=== PATIENT | male | born 1960 | race Caucasian/White ===

== ENCOUNTER → 2019-06-27 13:35 | Outpatient (CLI) | payer BC, SELFPAY ==
--- NOTE | 2019-06-27 13:38 | US_ITS ---
PROCEDURE: US EXTREMITY LT LIMITED CLINICAL INDICATION: POPLATEAL FOSSE MASS which is palpable COMPARISON: No exams were available for comparison FINDINGS: There is a primarily sonolucent mass popliteal fossa measuring 6.9 x 4.1 by 4.4 cm. There may be some minimal internal debris noted. The borders are fairly well-defined and the appearance and location certainly is consistent with a popliteal cyst. IMPRESSION: Carrillo's cyst left popliteal fossa Dictated by: Dr. Troy Lucero MD 06/29/2019 09:[address] Troy Lucero MD in [place] 06/29/2019 09:59
== END ==
PROVIDERS: PCP Family Medicine; Visit Provider Family Medicine
DX: M71.22 Synovial cyst of popliteal space [Baker], left knee (principal)
CPT/HCPCS: 76882

== ENCOUNTER 2024-01-05 14:25 | Outpatient (CLI) | payer BC, SELFPAY ==
--- NOTE | 2024-01-05 14:31 | CT_ITS ---
FINAL REPORT TECHNIQUE: Axial images through the abdomen and pelvis were performed without contrast. This study was performed with techniques to keep radiation doses as low as reasonably achievable, (ALARA). Individualized dose reduction techniques using automated exposure control or adjustment of mA and/or kV according to the patient's size were employed. CLINICAL HISTORY: left sided flank pain; intermittent x3 weeks FINDINGS: ABDOMEN: The lung bases are clear. The heart size is normal. Limited images of the liver are unremarkable. The spleen is normal. No adrenal mass is identified. There is a 4.5 cm infrarenal abdominal aortic aneurysm. There is no significant free fluid or adenopathy. There are multiple bilateral renal stones measuring up to 5 mm. There is mild left hydronephrosis secondary to a 7 mm left UPJ stone. PELVIS: The appendix is normal. There are multiple colonic diverticula. Inguinal hernias are identified containing fat. The urinary bladder is unremarkable. There is no significant free fluid or adenopathy. IMPRESSION: Bilateral nephrolithiasis. Mild left hydronephrosis secondary to a left UPJ stone. Infrarenal abdominal aortic aneurysm. Reviewed, Interpreted and Dictated by Chris Sow III, MD Transcribed by Maryebth Martinez Authenticated and [facility]
== END 2024-01-05 23:59 | disposition home or self-care (01) ==
PROVIDERS: PCP Family Medicine; Visit Provider Family Medicine
DX: R10.9 Unspecified abdominal pain (principal); R31.9 Hematuria, unspecified
CPT/HCPCS: 74176

== ENCOUNTER 2024-01-11 19:37 | Emergency (ER) | payer BC, SELFPAY ==
[2024-01-11] VITALS (7 sets, daily range): BP systolic 128–155; BP diastolic 77–95; PULSE 73–86; RESP 16–22; TEMP 36.8; O2SAT 94–99; BMI 31.3
--- NOTE | 2024-01-11 19:46 | ED_ITS ---
<Statement entered by Sage Wiggins MD - 01/11/24 23:02> I was consulted by the PITO, and we discussed the complexity of the problems being addressed. I approved the treatment and management plan for this patient's care in the emergency department, thus performing a substantive portion of the medical decision making. Sage Wiggins MD Discharge Plan Disposition Patient Disposition: Xfer Short-Term Hosp Referrals Follow up/Referrals: Magdiel Sanchez [Primary Care Provider] - See instructions Clinical Impressions Clinical Impression: Ureterolithiasis, Bilateral hydronephrosis, Acute kidney injury (nontraumatic), Rectal mass Discharge ED Provider: Natalia Donahue General Adult HPI <SHAYNE Gill - Last Filed: 01/11/24 23:00> General Chief complaint: PAIN Stated complaint: ? kidney stone Time Seen by Provider: 01/11/24 19:41 History of Present Illness HPI narrative: Patient presents for acute onset of right flank pain. Patient has a history of kidney stones and has passed 3 in the last few months most recently being around December 05. His PCP ordered a CT scan of the abdomen which showed an obstructing stone at the left UPJ. Also incidentally saw approximately 4.5 cm infrarenal abdominal aortic aneurysm. Patient had been set up to see Dr. Tomy James for prostate issues but had not been referred to see anyone for kidney stones. Patient reports acute onset right flank pain that began around 5:00 this afternoon with associated renal colic and pain was unrelenting enough that he was having vomiting. He denies chest pain shortness of breath fever chills hemoptysis hematochezia melena diarrhea. Related Data Allergies Allergy/AdvReac Type Severity Reaction Status Date / Time No Known Allergies Allergy Verified 01/11/24 19:57 PFSH <SHAYNE Gill - Last Filed: 01/11/24 23:00> PFS Disclaimer: The information contained in this section may have been updated after the patient was seen, as this information can be updated by other users. Social History (Updated 01/11/24 @ 23:00 by SHAYNE Gill) Smoking Status: Current every day smoker alcohol intake: never current occupational status: employed Travel in the last 8 weeks: None <SHAYNE Gill - Last Filed: 01/11/24 23:00> ROS Obtained: Yes Systems reviewed as appropriate & no additional complaints except as documented Physical Exam <SHAYNE Gill - Last Filed: 01/11/24 23:00> General General appearance: alert and in no apparent distress Neck Neck exam: Present lymphadenopathy Respiratory Respiratory exam: Present normal lung sounds bilaterally Cardiovascular Cardiovascular exam: Present regular rate, normal rhythm and normal heart sounds Back Exam Back exam: Present normal inspection, full ROM and CVA tenderness (R); Absent CVA tenderness (L) Neurological Exam Neurological exam: Present alert and oriented X3 Medical Decision Making <SHAYNE Gill - Last Filed: 01/11/24 23:00> Medical Records Medical records reviewed: Yes I reviewed the patient's medical records. Roger Inquiry Pt receiving controlled substance: No Vital Signs: 01/11/24 19:39 Temperature 98.2 F Temperature Source Oral Pulse Rate [Right] 73 Respiratory Rate 22 Blood Pressure [Right Arm] 151/77 H Blood Pressure Mean [Right Arm] 101 Blood Pressure Source [Right Arm] Automatic Cuff Blood Pressure Position [Right Arm] Sitting 02 Sat by Pulse Oximetry 99 Oxygen Delivery Method Room Air Lab Data Lab results reviewed: Yes I reviewed the patient's lab results. Lab Results 01/11/24 19:56: WBC 13.3 H, RBC 5.47, Hgb 17.2, Hct 50.2, MCV 91.9, MCH 31.4 H, MCHC 34.2, RDW 13.4, Plt Count 183, MPV 9.8, Neut % (Auto) 58.2, Lymph % (Auto) 33.8, Harvey % (Auto) 5.2, Eos % (Auto) 1.8, Baso % (Auto) 1.0, Neut # (Auto) 7.7, Lymph # (Auto) 4.5, Harvey # (Auto) 0.7, Eos # (Auto) 0.2, Baso # (Auto) 0.1, Sodium 138, Potassium 4.2, Chloride 103, Carbon Dioxide 24, Anion Gap 16.3 H, B UN 24 H, Creatinine 2.60 H, Estimated Creat Clear 38, Estimated GFR 25 L, Est GFR ( Amer) 31 L, Glucose 124 H, Calcium 9.4, Total Bilirubin 0.5, AST 32, ALT 27, Alkaline Phosphatase 69, Total Protein 8.3 H, Albumin 4.3, Globulin 4.0 H, Albumin/Globulin Ratio 1.1 01/11/24 22:15: Urine Color Yellow, Urine Appearance Clear, Urine pH 6.0, Ur Specific Funk 1.010, Urine Protein Negative, Urine Glucose (UA) Negative, Urine Ketones Negative, Urine Blood 2+, Urine Nitrate Negative, Urine Bilirubin Negative, Urine Urobilinogen 0.2, Ur Leukocyte Esterase Negative, Urine RBC 20- 50, Urine WBC 3-5, Ur Squamous Epith Cells 3-5, Urine Bacteria 1+, Urine Mucus Trace 01/11/24 19:56 01/11/24 19:56 Orders (Tests/Meds): ED MEDICATIONS Generic Name Dose Route Start Last Admin Trade Name Freq PRN Reason Stop Dose Admin Lactated Ringer's 1,000 mls @ 999 mls/hr 01/12/24 00:22 01/12/24 00:31 Lactated Ringer's 1000 Ml Bag IV 01/12/24 01:22 999 mls/hr .Q1H1M ONE Administration Sodium Chloride 8 ml 01/12/24 00:38 Sodium Chloride 0.9% 10ml Vial IV 02/11/24 00:37 NEEDED PRN dilute pepcid Discontinued Medications Generic Name Dose Route Start Last Admin Trade Name Freq PRN Reason Stop Dose Admin Acetaminophen 1,000 mg 01/11/24 19:48 01/11/24 20:29 Acetaminophen 1,000mg/100ml Vial IV 01/11/24 19:49 1,000 mg ONCE ONE Administration Belladonna Alkaloids 60 ml 01/11/24 22:18 01/11/24 22:19 Belladonna Alkaloids 60 Ml Ml PO 01/11/24 22:19 60 ml ONCE ONE Administration Famotidine 20 mg 01/12/24 00:38 01/12/24 00:47 Famotidine 20mg/2ml Vial IV 01/12/24 00:39 20 mg ONCE ONE Administration Sodium Chloride 500 mls @ 999 mls/hr 01/11/24 19:48 01/11/24 20:29 Sod Chlor 0.9% 1000ml Bag IV 01/11/24 20:18 999 mls/hr .Q31M ONE Administration Ketorolac Tromethamine 15 mg 01/11/24 19:48 07/15/24 20:28 Ketorolac 30mg/Ml Vial IV 01/11/24 19:49 15 mg ONCE ONE Administration Morphine Sulfate 4 mg 01/11/24 20:27 01/11/24 20:29 Morphine 4mg/Ml Syringe IV 01/11/24 20:28 4 mg ONCE ONE Administration Ondansetron HCl 4 mg 01/11/24 20:12 01/11/24 20:28 Ondansetron 4mg/2ml Vial IV 01/11/24 20:13 4 mg ONCE ONE Administration Pantoprazole Sodium 40 mg 01/12/24 00:38 01/12/24 00:48 Pantoprazole 40mg Tablet PO 01/12/24 00:39 40 mg ONCE ONE Administration ORDERS Category Date Time Status CT abdomen pelvis wo con Stat Cat Scan 01/11/24 21:08 Completed CBC w/Auto Diff [Complete Blood Count Auto Diff] Stat Lab 01/11/24 19:56 Completed CMP [Comprehensive Metabolic Panel] Stat Lab 01/11/24 19:56 Completed UA [Urinalysis and Microscopic] Stat Lab 01/11/24 22:15 Completed Medical Decision Narrative: In summary patient is a 63-year-old male who presents to the emergency department for evaluation of acute right flank pain. Patient is hemodynamically stable upon arrival, afebrile. Physical exam is remarkable for tenderness to percussion of the right CVA negative on the left. Patient has slight diffuse right-sided tenderness to palpation without rebound or guarding or rigidity.. Differential diagnosis includes urinary tract infection kidney stone pyelonephritis other intra-abdominal pathology etc. Initial workup will be conducted with hematologic labs urinalysis CT scan abdomen pelvis. Initial interventions include crystalloid bolus Toradol Tylenol Zofran. Initial workup reviewed by me shows a slightly elevated white count with a left shift remainder of his hematologic labs show an elevated creatinine but we do not have a more current baseline suggestive of acute kidney injury with a decreased GFR. Urinalysis shows blood but no evidence of bacteria or infection. My informal interpretation of CT scan abdomen pelvis shows bilateral UPJ stones confirmed by radiology with hydronephrosis and multiple intrarenal stones bilaterally. Incidentally radiology read an area of concern in the rectum and recommended a GI evaluation and colonoscopy nonurgently. Patient informed of those findings. Upon repeat evaluation patient did have some improvement in his pain after initial intervention and is agreeable to transfer. Given this I have contacted the [facility] initially per patient request and we are awaiting that at the time of handoff at [address] Donahue <Natalia Donahue, DO - Last Filed: 01/12/24 00:49> Vital Signs: 01/11/24 19:39 Temperature 98.2 F Temperature Source Oral Pulse Rate [Right] 73 Respiratory Rate 22 Blood Pressure [Right Arm] 151/77 H Blood Pressure Mean [Right Arm] 101 Blood Pressure Source [Right Arm] Automatic Cuff Blood Pressure Position [Right Arm] Sitting 02 Sat by Pulse Oximetry 99 Oxygen Delivery Method Room Air Lab Data Lab Results 01/11/24 19:56: WBC 13.3 H, RBC 5.47, Hgb 17.2, Hct 50.2, MCV 91.9, MCH 31.4 H, MCHC 34.2, RDW 13.4, Plt Count 183, MPV 9.8, Neut % (Auto) 58.2, Lymph % (Auto) 33.8, Harvey % (Auto) 5.2, Eos % (Auto) 1.8, Baso % (Auto) 1.0, Neut # (Auto) 7.7, Lymph # (Auto) 4.5, Harvey # (Auto) 0.7, Eos # (Auto) 0.2, Baso # (Auto) 0.1, Sodium 138, Potassium 4.2, Chloride 103, Carbon Dioxide 24, Anion Gap 16.3 H, B UN 24 H, Creatinine 2.60 H, Estimated Creat Clear 38, Estimated GFR 25 L, Est GFR ( Amer) 31 L, Glucose 124 H, Calcium 9.4, Total Bilirubin 0.5, AST 32, ALT 27, Alkaline Phosphatase 69, Total Protein 8.3 H, Albumin 4.3, Globulin 4.0 H, Albumin/Globulin Ratio 1.1 01/11/24 22:15: Urine Color Yellow, Urine Appearance Clear, Urine pH 6.0, Ur Specific Funk 1.010, Urine Protein Negative, Urine Glucose (UA) Negative, Urine Ketones Negative, Urine Blood 2+, Urine Nitrate Negative, Urine Bilirubin Negative, Urine Urobilinogen 0.2, Ur Leukocyte Esterase Negative, Urine RBC 20- 50, Urine WBC 3-5, Ur Squamous Epith Cells 3-5, Urine Bacteria 1+, Urine Mucus Trace Orders (Tests/Meds): ED MEDICATIONS Generic Name Dose Route Start Last Admin Trade Name Van PRN Reason Stop Dose Admin Lactated Ringer's 1,000 mls @ 999 mls/hr 01/12/24 00:22 01/12/24 00:31 Lactated Ringer's 1000 Ml Bag IV 01/12/24 01:22 999 mls/hr .Q1H1M ONE Administration Sodium Chloride 8 ml 01/12/24 00:38 Sodium Chloride 0.9% 10ml Vial IV 02/11/24 00:37 NEEDED PRN dilute pepcid Discontinued Medications Generic Name Dose Route Start Last Admin Trade Name Freq PRN Reason Stop Dose Admin Acetaminophen 1,000 mg 01/11/24 19:48 01/11/24 20:29 Acetaminophen 1,000mg/100ml Vial IV 01/11/24 19:49 1,000 mg ONCE ONE Administration Belladonna Alkaloids 60 ml 01/11/24 22:18 01/11/24 22:19 Belladonna Alkaloids 60 Ml Ml PO 01/11/24 22:19 60 ml ONCE ONE Administration Famotidine 20 mg 01/12/24 00:38 01/12/24 00:47 Famotidine 20mg/2ml Vial IV 01/12/24 00:39 20 mg ONCE ONE Administration Sodium Chloride 500 mls @ 999 mls/hr 01/11/24 19:48 01/11/24 20:29 Sod Chlor 0.9% 1000ml Bag IV 01/11/24 20:18 999 mls/hr .Q31M ONE Administration Ketorolac Tromethamine 15 mg 01/11/24 19:48 01/11/24 20:28 Ketorolac 30mg/Ml Vial IV 01/11/24 19:49 15 mg ONCE ONE Administration Morphine Sulfate 4 mg 01/11/24 20:27 01/11/24 20:29 Morphine 4mg/Ml Syringe IV 01/11/24 20:28 4 mg ONCE ONE Administration Ondansetron HCl 4 mg 01/11/24 20:12 01/11/24 20:28 Ondansetron 4mg/2ml Vial IV 01/11/24 20:13 4 mg ONCE ONE Administration Pantoprazole Sodium 40 mg 01/12/24 00:38 01/12/24 00:48 Pantoprazole 40mg Tablet PO 01/12/24 00:39 40 mg ONCE ONE Administration ORDERS Category Date Time Status CT abdomen pelvis wo con Stat Cat Scan 01/11/24 21:08 Completed CBC w/Auto Diff [Complete Blood Count Auto Diff] Stat Lab 01/11/24 19:56 Completed CMP [Comprehensive Metabolic Panel] Stat Lab 01/11/24 19:56 Completed UA [Urinalysis and Microscopic] Stat Lab 01/11/24 22:15 Completed Medical Decision Narrative: In summary patient is a 63-year-old male who presents to the emergency department for evaluation of acute right flank pain. Patient is hemodynamically stable upon arrival, afebrile. Physical exam is remarkable for tenderness to percussion of the right CVA negative on the left. Patient has slight diffuse right-sided tenderness to palpation without rebound or guarding or rigidity.. Differential diagnosis includes urinary tract infection kidney stone pyelonephritis other intra-abdominal pathology etc. Initial workup will be conducted with hematologic labs urinalysis CT scan abdomen pelvis. Initial interventions include crystalloid bolus Toradol Tylenol Zofran. Initial workup reviewed by me shows a slightly elevated white count with a left shift remainder of his hematologic labs show an elevated creatinine but we do not have a more current baseline suggestive of acute kidney injury with a decreased GFR. Urinalysis shows blood but no evidence of bacteria or infection. My informal interpretation of CT scan abdomen pelvis shows bilateral UPJ stones confirmed by radiology with hydronephrosis and multiple intrarenal stones bilaterally. Incidentally radiology read an area of concern in the rectum and recommended a GI evaluation and colonoscopy nonurgently. Patient informed of those findings. Upon repeat evaluation patient did have some improvement in his pain after initial intervention and is agreeable to transfer. Given this I have contacted the [facility] initially per patient request and we are awaiting that at the time of handoff at [address] Godfrey Donahue, DO: I assumed care of the patient at 2300. Patient resting comfortably and hemodynamically stable. Fluid resuscitation ongoing given BRISEYDA. I had an interactive discussion with urology at [facility] Dr. De who advised that he would be happy to help with stenting the patient. I then had an interactive discussion with the hospitalist, Dr. Rodriguez, who accepted the patient for transfer. Bed assignment was given, report was called, and the patient was transported to [facility] for higher level of care in stable condition given that we do not have urology here. Critical Care <SHAYNE Gill - Last Filed: 01/11/24 23:00> Critical Care Time Critical Care Time: No
[2024-01-11 20:15] LABS: Basophils # 0.1 K/mm3 (0-0.2); Eosinophils # 0.2 K/mm3 (0.0-0.4); Eosinophils % 1.8 % (0.1-12.0); Hematocrit 50.2 % (42.0-52.0); Hemoglobin 17.2 g/dL (14.1-18.0); Lymphocytes # 4.5 K/mm3 (0.7-4.5); Lymphocytes % 33.8 % (10-50); Mean Corpuscular HGB Conc 34.2 g/dL (31.8-35.4); Mean Corpuscular Hemoglobin 31.4 pg (27.0-31.2); Mean Corpuscular Volume 91.9 fl (80-94); Mean Platelet Volume 9.8 fl (7.4-10.4); Monocytes # 0.7 K/mm3 (0.1-1.0); Monocytes % 5.2 % (1.7-9.3); Neutrophils # 7.7 K/mm3 (1.8-7.8); Neutrophils % 58.2 % (37.0-80.0); Platelet Count 183 K/mm3 (142-424); Red Blood Count 5.47 M/mm3 (4.60-6.20); Red Cell Distribution Width 13.4 % (11.5-17.5); White Blood Count 13.3 K/mm3 (4.8-10.8)
[2024-01-11 20:26] LABS: Chloride 103 mmol/L (98-107); Potassium 4.2 mmoL/L (3.5-5.1); Sodium 138 mmol/L (136-145)
[2024-01-11 20:28] LABS: Blood Urea Nitrogen 24 mg/dl (9-20); Creatinine Clearance Estimated 38 mL/min (50-200); Estimated Glomerular Filt Rate 25 ml/min (>60); GFR (African American) 31 ML/MIN (>60)
[2024-01-11] MEDS: KETOROLAC 30MG/ML VIAL 15 MG IV (20:28)
[2024-01-11] MEDS: ONDANSETRON 4MG/2ML VIAL 4 MG IV (20:28)
[2024-01-11 20:29] LABS: Alanine Aminotransferase 27 U/L (12-78); Albumin Level 4.3 g/dl (3.5-5.0); Albumin/Globulin Ratio 1.1 (1.1-1.8); Alkaline Phosphatase 69 U/L (38-126); Aspartate Amino Transferase 32 U/L (17-59); Bilirubin,Total 0.5 mg/dl (0.2-1.3); Calcium 9.4 mg/dl (8.4-10.2); Carbon Dioxide 24 mmol/L (22.0-30.0); Glucose 124 mg/dl (74-100); Total Protein,Serum 8.3 g/dl (6.3-8.2)
[2024-01-11] MEDS: MORPHINE 4MG/ML SYRINGE 4 MG IV (20:29)
[2024-01-11] MEDS: 0.9 % SODIUM CHLORIDE 1000ML 500 ML 999 ML IV (20:29)
[2024-01-11] MEDS: ACETAMINOPHEN 1,000MG/100ML VIAL 1000 MG IV (20:29)
[2024-01-11 20:35] LABS: Anion Gap 16.3 mEq/L (5-15)
--- NOTE | 2024-01-11 21:08 | CT_ITS ---
PROCEDURE INFORMATION: Exam: CT Abdomen And Pelvis Without Contrast Exam date and time: 01/11/2024 9:16 PM Age: 63 years old Clinical indication: Abdominal pain; Flank; Right; Additional info: Right flank pain TECHNIQUE: Imaging protocol: Computed tomography of the abdomen and pelvis without contrast. Radiation optimization: All CT scans at this facility use at least one of these dose optimization techniques: automated exposure control; mA and/or kV adjustment per patient size (includes targeted exams where dose is matched to clinical indication); or iterative reconstruction. COMPARISON: CT ABDOMEN PELVIS WO CON 01/05/2024 2:31 PM FINDINGS: Lungs: The visualized lung bases demonstrate no focal infiltrates. Liver: The liver appears within normal limits. Gallbladder and biliary ducts: The gallbladder is normal. There is no evidence of biliary ductal dilation. Pancreas: The pancreas is normal. Spleen: The spleen is normal. Adrenal glands: The adrenal glands appear within normal limits. Kidneys and ureters: Mild left renal hydronephrosis, unchanged. This is due to a stone within the proximal left ureter at the level of the UPJ. This stone measures 8 x 6 mm. Unchanged in location. New mild right renal obstructive hydronephrosis due to a stone at the level of the right UPJ. Stone measures 6 x 5 mm. There are approximately 4 to 5 intra calyceal stones within the left kidney each measuring 1-2 mm. There are approximately 10-12 intra calyceal stones within the right kidney ranging from 1-3 mm. Stomach and bowel: The stomach appears within normal limits. No wall thickening or inflammatory change. Subtle focal asymmetric wall thickening is suggested within the mid to lower rectum. See series 3 image 90 a through image 104. There is some questionable desmoplastic reaction within the adjacent perirectal fat see series 3, image 102. Recommend follow-up GI consultation and colonoscopy . Sigmoid diverticulosis noted. Appendix: No evidence of appendicitis. Intraperitoneal space: No free air. No evidence for focal fluid collection or ascites. No evidence for omental thickening. Vasculature: Focal fusiform aneurysmal dilation of the infrarenal abdominal aorta maximal transverse dimension 4.1 cm. Lymph nodes: Unremarkable. No pathologically enlarged lymph nodes are identified. Urinary bladder: Unremarkable as visualized. Reproductive: The prostate gland appears normal. Bones/joints: Unremarkable. No acute fracture. Soft tissues: Chest wall subcutaneous tissues and musculature appear unremarkable. IMPRESSION: 1. Subtle focal asymmetric wall thickening is suggested within the mid to lower rectum. See series 3 image 90 a through image 104. There is some questionable desmoplastic reaction within the adjacent perirectal fat see series 3, image 102. Recommend follow-up GI consultation and colonoscopy to exclude colonic neoplasm . 2. New mild right renal obstructive hydronephrosis due to a stone at the level of the right UPJ. Stone measures 6 x 5 mm. 3. Mild left renal hydronephrosis, unchanged. This is due to a stone within the proximal left ureter at the level of the UPJ. This stone measures 8 x 6 mm. Unchanged in location. 4. Focal fusiform aneurysmal dilation of the infrarenal abdominal aorta maximal transverse dimension 4.1 cm. 5. Sigmoid diverticulosis noted.
[2024-01-11 22:18] LABS: Microscopic, Urine URINE MICROSCOPIC (MICROSCOPIC)
[2024-01-11] MEDS: BELLADONNA ALKALOIDS 60 ML ML PO (22:19)
[2024-01-11 22:20] LABS: Appearance,Urine CLEAR (Clear); Bilirubin,Urine Negative (Negative); Blood, Urine 2+ (Negative); Color,Urine YELLOW (Yellow); Glucose,Urine (UA) Negative (Negative); Ketones,Urine Negative (Negative); Leukocyte Esterase,Urine Negative (Negative); Nitrate,Urine Negative (Negative); Protein,Urine Negative (Negative); Urobilinogen,Urine 0.2 EU/dl (0.2)
--- NOTE | 2024-01-11 22:34 | PC.NURSE ---
Dr. Wiggins speaking to ad
[2024-01-11 22:35] LABS: Bacteria,Urine 1+ /lpf; Mucus,Urine Trace /lpf; RBC,Urine 20-50 #/hpf (0-3)
--- NOTE | 2024-01-11 22:35 | PC.NURSE ---
spoke with [facility], they are supposed to give us a call back with more information about the transfer.
--- NOTE | 2024-01-11 23:30 | PC.NURSE ---
Called [facility] back for an update on the transfer. [facility] says they have no updates at this time.
[2024-01-12] VITALS: BP 150/99; PULSE 72; RESP 20; O2SAT 96
--- NOTE | 2024-01-12 00:13 | PC.NURSE ---
Reaching out to [facility] [place]
--- NOTE | 2024-01-12 00:19 | PC.NURSE ---
Dr. Donahue speaking to [facility], Dr. De at this time Yarsani has also called back and are on hold for Dr. Donahue
--- NOTE | 2024-01-12 00:21 | PC.NURSE ---
Dr. Donahue speaking to [facility] [place], Dr. Crawford now
--- NOTE | 2024-01-12 00:24 | PC.NURSE ---
Dr. Donahue speaking to hospitalist at [facility]
[2024-01-12 00:30] VITALS: BP 155/91; PULSE 83; RESP 18; O2SAT 95
[2024-01-12] MEDS: LACTATED RINGERS 1000ML 1,000 ML 999 ML IV (00:31)
[2024-01-12] MEDS: FAMOTIDINE 20MG/2ML VIAL 20 MG IV (00:47)
[2024-01-12] MEDS: PANTOPRAZOLE 40MG TABLET 40 MG PO (00:48)
--- NOTE | 2024-01-12 01:17 | PC.NURSE ---
Spoke with [facility] to inform them of patient transfer to [facility].
[2024-01-12 01:30] VITALS: BP 159/80; PULSE 76; RESP 16; O2SAT 95
--- NOTE | 2024-01-12 01:50 | PC.NURSE ---
Report called to THOMAS Oliver at [facility]
[2024-01-12 02:00] VITALS: BP 145/86; PULSE 71; RESP 18; O2SAT 96
[2024-01-12 02:22] VITALS: BP 155/91; PULSE 83; RESP 18; TEMP 36.8; O2SAT 96
== END 2024-01-12 02:22 | disposition short-term general hospital (02) ==
PROVIDERS: Physician Assistant; Emergency Provider Emergency Medicine; PCP Family Medicine
DX: N13.2 Hydronephrosis with renal and ureteral calculous obstruction (principal); R10.31 Right lower quadrant pain; M54.59 Other low back pain; K62.89 Other specified diseases of anus and rectum; N17.9 Acute kidney failure, unspecified; R11.2 Nausea with vomiting, unspecified; F17.210 Nicotine dependence, cigarettes, uncomplicated
CPT/HCPCS: 74176; 80053; 81001; 85025; 96361; 96374; 96375; 99285; J0131; J1885; J2270; J2405; J7120; S0028

== ENCOUNTER 2024-09-27 11:39 | Outpatient (CLI) | payer BC, SELFPAY ==
--- NOTE | 2024-09-27 11:42 | CT_ITS ---
FINAL REPORT TECHNIQUE: Axial images through the abdomen and pelvis were performed without contrast.This study was performed with techniques to keep radiation doses as low as reasonably achievable, (ALARA). Individualized dose reduction techniques using automated exposure control or adjustment of mA and/or kV according to the patient's size were employed. CLINICAL HISTORY: STONE PROTOCOL RIGHT SIDED PAIN, HEMATURIA HX OF KIDNEY STONES COMPARISON: 01/11/2024 FINDINGS: ABDOMEN: The lung bases are clear. The heart size is normal. Limited images of the liver demonstrate fatty infiltration. Gallbladder is unremarkable. The spleen is normal. No adrenal mass is identified. There is moderate right hydronephrosis secondary to an 8 x 6 mm distal right ureteral stone just proximal to the UVJ. Tiny bilateral calyceal stones are also present. Bowel is normal. There is an infrarenal abdominal aortic aneurysm measuring up to 47 mm on axial imaging which is unchanged. 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 PELVIS: The appendix is normal. There is a distal right ureteral stone seen. Urinary bladder is decompressed. IMPRESSION: High-grade right upper urinary tract obstruction secondary to an 8 x 6 mm distal right ureteral stone. Numerous bilateral calyceal stones. Stable abdominal aortic aneurysm. Reviewed, Interpreted and Dictated by Mark Askew MD Transcribed by Joanna Meza Authenticated and [facility]
== END 2024-09-27 23:59 | disposition home or self-care (01) ==
LOC: RAD 11:39
PROVIDERS: PCP Family Medicine; Visit Provider Family Medicine
DX: R31.0 Gross hematuria (principal)
CPT/HCPCS: 74176